=== PATIENT | male | born 1995 | race Caucasian/White ===

== ENCOUNTER 2019-12-08 01:02 | Outpatient (CLI) | payer OTHER, SELFPAY ==
[2019-12-08 19:05] LABS: SARS-CoV-2 RNA PCR Negative
== END 2019-12-08 01:03 | disposition home or self-care (01) ==
LOC: ANHCOVIDDT 01:02
PROVIDERS: PCP Internal Medicine; Visit Provider Internal Medicine Gastroenterology
DX: Z01.812 Encounter for preprocedural laboratory examination (principal); Z20.828 Contact with and (suspected) exposure to other viral communicable diseases
CPT/HCPCS: 87635; C9803; U0003

== ENCOUNTER 2019-12-10 01:22 | Day surgery (SDC) | payer OTHER, SELFPAY ==
[2019-12-07 09:57] VITALS: BMI 43.0
--- NOTE | 2019-12-09 08:07 | P.PNAN_ITS ---
Anes - Initial Pre Proc Eval Procedure: Operation Date: 12/10/19 10:00 Proposed Procedures p Esophagogastroduodenoscopy - Landry Stevens MD Date/Time: 12/09/19 08:07 Surgeon: Landry Stevens MD Pre Op Diagnosis: Dysphagia Patient Data Age: 24 Gender: M Height: 1.83 m Weight: 144 kg Allergies Allergy/AdvReac Type Severity Reaction Status Date / Time No Known Allergies Allergy Verified 12/10/19 09:34 Home Medications Medication Instructions Recorded Confirmed Type lisinopril 20 mg PO DAILY 12/07/19 12/07/19 History Patient hx anesthesia problems: none Family hx anesthesia problems: none [facility] Past Medical History Medical History (Updated 12/09/19 @ 08:07 by Vince Escamilla DO) Anxiety Hypertension Psoriasis Seizure prior to age 7 Surgical History Surgical History (Updated 12/09/19 @ 08:07 by Vince Escamilla DO) History of tonsillectomy Social History Social History Smoking status: Never smoker Alcohol intake: never Substance use: current Substance use type: marijuana Other substance usage details: SMOKE Last use: 12/07/19 Living arrangements: with family Spiritual care concerns: No Anes - Eval Final PreProcedure Day of Procedure 12/09/19 08:07 Patient weight: morbidly obese Heart: regular rate and rhythm Lungs: clear to auscultation and normal air movement Airway: Mallampati scale class II Neurological: alert and oriented Last oral intake: >/= 8 hours ASA classification: III Emergent: no Anesthetic plan: proceed Anesthesia type and monitoring: general GIVS and standard monitoring Informed Consent: The patient's anesthetic plan and its attendant risks and benefits were discussed with the patient/family/POA. Questions were solicited and answers provided to the satisfaction of the patient/family/POA.
--- NOTE | 2019-12-10 09:35 | PM.HPGS ---
History of Present Illness History of Present Illness Consent: Risks, benefits, and alternatives have been discussed and questions answered. Patient agrees to proceed with procedure. Chief complaint: Dysphagia Narrative: Ben Manrique is a 24 year old W male referred for EGD possible esophageal dilatation secondary to a several month history of increasing solid food dysphagia and points to the upper chest. Patient also has at least a 5 year history of chronic acid reflux disease. His father has a history of Joyce's esophagus. Patient denies any weight loss. No fever chills or sweats nausea vomiting. Patient been taking [id number] Tums but no proton pump inhibitor therapy in the past. ON LICENSE OF [facility] Past Medical History Medical History Anxiety Hypertension Psoriasis Seizure prior to age 7 Surgical History Surgical History History of tonsillectomy Social History Social History Smoking status: Never smoker Alcohol intake: never Substance use: current Substance use type: marijuana Other substance usage details: SMOKE Last use: 12/07/19 Living arrangements: with family Spiritual care concerns: No Meds Home Medications and Allergies Home Medications Medication Instructions Recorded Confirmed Type lisinopril 20 mg PO DAILY 12/07/19 12/07/19 History Allergies Allergy/AdvReac Type Severity Reaction Status Date / Time No Known Allergies Allergy Verified 12/10/19 09:34 Exam Const: Orientation/consciousness: patient oriented x3 Resp: Auscultation: clear to auscultation bilaterally Cardio: Rate: regular rate Rhythm: regular rhythm Heart sounds: no murmurs GI: GI Palp: Yes Soft to palpation, No Tenderness to palpation present (GI), Yes No hepatosplenomegaly present and No Palpable mass present Auscultation: normal bowel sounds Neuro: General: patient oriented x3 and no focal motor deficits Extrem: General: no pedal edema Assessment and Plan Additional Plan EGD phos esophageal dilatation for evaluation of the dysphagia and chronic gastroesophageal reflux disease
[2019-12-10] MEDS: LACTATED RINGERS 1,000 ML 150 ML IV CONT (09:41)
[2019-12-10 09:44] VITALS: BP 144/88; PULSE 94; RESP 12; TEMP 36.4; O2SAT 98
[2019-12-10 10:17] VITALS: BP 130/68; PULSE 78; RESP 16; O2SAT 98
[2019-12-10 10:27] VITALS: BP 134/62; PULSE 72; RESP 16; O2SAT 98
[2019-12-10 10:37] VITALS: BP 130/82; PULSE 70; RESP 18; O2SAT 98
== END 2019-12-10 11:00 | disposition home or self-care (01) ==
PROVIDERS: PCP Internal Medicine; Visit Provider Internal Medicine Gastroenterology
PROC: 0DJ08ZZ Inspection of Upper Intestinal Tract, Via Natural or Artificial Opening Endoscopic (ICD-10-PCS; CPT 43235; principal; 2019-12-10 10:00)
DX: R13.10 Dysphagia, unspecified (principal); K21.00 Gastro-esophageal reflux disease with esophagitis, without bleeding; K44.9 Diaphragmatic hernia without obstruction or gangrene; I10 Essential (primary) hypertension; F12.90 Cannabis use, unspecified, uncomplicated; E66.01 Morbid (severe) obesity due to excess calories; Z68.41 Body mass index [BMI] 40.0-44.9, adult
CPT/HCPCS: 43239; 87081; 88305; J7120